=== PATIENT | male | born 1960 | race Caucasian/White ===

== ENCOUNTER 2019-03-20 15:00 | Outpatient (RCR) ==
--- NOTE | 2019-03-03 13:33 | RS.CXNS ---
Date of scheduled appointment: 03/03/19 Type: Cancel Reason for Cancel/NS: Due to work,re-scheduled for next week.
--- NOTE | 2019-03-06 16:05 | RS.OPPTDN ---
Subjective Date of Note: 03/06/19 Visit #: 5 Number of visits approved by Insurance: na Date of Evaluation: 02/21/19 Payer Source: Insurance Treatment Diagnosis: cervical pain, muscle tightness Current Subjective/complaints:: Patient reports occasional L shoulder aching , but none currently.He reports the cervical area feels stiff,but not painful. *Precautions: n/a Pain Assessment - Pain Description Pain Location: cervical / L shoulder Pain Description: Dull, Aching Current Pain Intensity: na - Heat/Cryotherapy Treatment: Hot Pack - Traction Treatment Method: Mechanical, Intermittent, Cervical Patient Position: Supine Amount of Force Applied: 20 # Hold Time: 30 secs. Rest Time: 5 secs. Duration of treatment: 20 mins. Traction Treatment Comment: Tolerates well. Interventions - Exercise/Activities/Manual Therapy Exercises/Activities: 20 mins. of postural pullbacks at 3 different angles, using black theraband.Reviewed HEP for cervical ROM and UT stretches. Total minutes of Exercise: 20 Manual Therapy: n/a Total minutes of Manual Therapy: 0 HOME EXERCISE PROGRAM: pt given written HEP including: cervical retraction, corner stretch, upper trap stretch, scapular retraction with green theraband - Charges Timed Code Treatment Minutes: 20 Total Treatment Time: 60 Procedures billed for this date of service:: hp,ex ,traction Assessment: Patient has less intensity ,less duration ,less frequency of pain throughout the day.He is attentive and motivated to improve .He has increased awareness of posture. Patient Education: Body/Joint mechanics, Home Exercise Program, Education of Plan of Care Patient demonstrates compliance with HEP?: Yes Short Term Goals Goal #1: pt independent with initial HEP Goal to be met by: 03/10/19 Progress towards Goal:: Progressing Goal #2: Decrease pain in cervical spine < 3/10 Goal to be met by: 03/10/19 Progress towards Goal:: Progressing Goal #3: Improve cervical ROM WFL's Goal to be met by: 03/10/19 Progress towards Goal:: Progressing Goal #4: Decrease upper trap tightness on L. 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 skilled PT to return patient to PLOF,with no cervical or L scapular pain ,tolerate all ADL's.
--- NOTE | 2019-03-09 08:19 | RS.OPPTDN ---
Subjective Date of Note: 03/08/19 Visit #: 6 Number of visits approved by Insurance: na Date of Evaluation: 02/21/19 Payer Source: Insurance Treatment Diagnosis: cervical pain, muscle tightness Current Subjective/complaints:: Patient reports tightness more than pain today, L shoulder also feels better. *Precautions: n/a Pain Assessment - Pain Description Pain Location: cervical /L scapula Pain Description: Tightness Current Pain Intensity: not rated - Heat/Cryotherapy Treatment: Hot Pack (20 mins. prior to traction) - Traction Treatment Method: Mechanical, Intermittent, Cervical Patient Position: Supine Amount of Force Applied: 22# Hold Time: 30 secs. Rest Time: 5 secs. Duration of treatment: 20 mins. Traction Treatment Comment: Tolerates well. Interventions - Exercise/Activities/Manual Therapy Exercises/Activities: HEP review while on hot pack,including the stretches and strengthening Total minutes of Exercise: 0 Manual Therapy: n/a Total minutes of Manual Therapy: 0 HOME EXERCISE PROGRAM: pt given written HEP including: cervical retraction, corner stretch, upper trap stretch, scapular retraction with green theraband - Charges Timed Code Treatment Minutes: 20 Total Treatment Time: 40 Procedures billed for this date of service:: hp,traction Assessment: Progressing well in all areas.He is compliant to HEP.He has improved postural awareness and also joint protection while at work. Patient Education: Education of diagnosis, Body/Joint mechanics, Home Exercise Program, Home Safety, Activity Modification, Education of Plan of Care Patient demonstrates compliance with HEP?: Yes Short Term Goals Goal #1: pt independent with initial HEP Goal to be met by: 03/10/19 Progress towards Goal:: Met Goal #2: Decrease pain in cervical spine < 3/10 Goal to be met by: 03/10/19 Progress towards Goal:: Partially Met (intensity varies) Goal #3: Improve cervical ROM WFL's Goal to be met by: 03/10/19 Progress towards Goal:: Progressing Goal #4: Decrease upper trap tightness on L. Goal to be met by: 03/10/19 Progress towards Goal:: Progressing [facility] Goals Goal #1: pt with no radiating pain into L scapula. Goal to be met by: 03/31/19 Progress towards goal: Partially Met (reports occasional "twinge" in L shoulder) Goal #2: pt able to perform normal daily work duties with no increased pain Goal to be met by: 03/31/19 Progress towards goal: Progressing Goal #3: decrease pain in cervical spine < 2/10 Goal to be met by: 03/31/19 Progress towards goal: Progressing Plan Dates of Stitchdown Thread Laster Goals: 03/31/19 Expiration date of current Insurance Approval:: 03/31/19 PLAN: Cont. skilled PT to return patient to PLOF.
--- NOTE | 2019-03-10 13:52 | RS.CXNS ---
Date of scheduled appointment: 03/10/19 Type: Cancel Reason for Cancel/NS: pt called to cancel appt due to unable to leave work. Rescheduled for next week.
--- NOTE | 2019-03-13 16:27 | RS.OPPTDN ---
Subjective Date of Note: 03/13/19 Visit #: 7 Number of visits approved by Insurance: na Date of Evaluation: 02/21/19 Payer Source: Insurance Treatment Diagnosis: cervical pain, muscle tightness Current Subjective/complaints:: Patient reports the neck pain is absent currently ,has some tightness present.He does still occasionally have the pain in the L scapula .He has noticed occasional tingling into the L 4th and 5th fingers,and it elevates when he side-bends his neck to the R. *Precautions: n/a Pain Assessment - Pain Description Pain Location: cervical / and L scapula Pain Description: Tightness, Dull, Aching Current Pain Intensity: not rated - Heat/Cryotherapy Treatment: Hot Pack (15 mins. prior to exercises and traction) - Traction Treatment Method: Mechanical, Intermittent, Cervical Patient Position: Supine Amount of Force Applied: 22# Hold Time: 30 secs. Rest Time: 5 secs. Duration of treatment: 20 mins. Traction Treatment Comment: Tolerates well. Interventions - Exercise/Activities/Manual Therapy Exercises/Activities: 25 mins. total,passive cervical stretches for rotation , lateral flexion,chin tucks ,upper traps stretches , occipital release,scapular trigger point release along medial border. Total minutes of Exercise: 25 Manual Therapy: n/a Total minutes of Manual Therapy: 0 HOME EXERCISE PROGRAM: pt given written HEP including: cervical retraction, corner stretch, upper trap stretch, scapular retraction with green theraband - Charges Timed Code Treatment Minutes: 55 Total Treatment Time: 55 Procedures billed for this date of service:: hp,ex2,traction Assessment: Patient progressing well.He has less intensity of pain in the cervical and L scapula.He is compliant to HERp.He still can benefit from PT to decrease the hypertonus in UT's.His medial border of the L scapula has several trigger points that are tender to palpate with moderate pressure. Patient Education: Body/Joint mechanics, Home Exercise Program, Education of Plan of Care Patient demonstrates compliance with HEP?: Yes Short Term Goals Goal #1: pt independent with initial HEP Goal to be met by: 03/10/19 Progress towards Goal:: Met Goal #2: Decrease pain in cervical spine < 3/10 Goal to be met by: 03/10/19 Progress towards Goal:: Partially Met (intensity varies) Goal #3: Improve cervical ROM WFL's Goal to be met by: 03/10/19 Progress towards Goal:: Progressing Goal #4: Decrease upper trap tightness on L. 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 Goal to be met by: 03/31/19 Progress towards goal: Partially Met (reports occasional "twinge" in L shoulder) Goal #2: pt able to perform normal daily work duties with no increased pain Goal to be met by: 03/31/19 Progress towards goal: Progressing Goal #3: decrease pain in cervical spine < 2/10 Goal to be met by: 03/31/19 Progress towards goal: Progressing Plan Dates of Pellet Preparation Operator Goals: 03/31/19 Expiration date of current Insurance Approval:: 03/31/19 PLAN: Cont. skilled PT to eliminate cervica/scapular pain.
--- NOTE | 2019-03-15 16:24 | RS.OPPTDN ---
Subjective Date of Note: 03/15/19 Visit #: 8 Number of visits approved by Insurance: na Date of Evaluation: 02/21/19 Payer Source: Insurance Treatment Diagnosis: cervical pain, muscle tightness Current Subjective/complaints:: Patient reports no cervical pain ,mostly tightness today.He does still have occasional pain along the medial border of the L scapula. *Precautions: n/a Pain Assessment - Pain Description Pain Location: Cervical and L scapula Pain Description: Tightness, Dull, Aching Current Pain Intensity: 0 - Heat/Cryotherapy Treatment: Hot Pack (20 mins prior to manual therapy) Interventions - Exercise/Activities/Manual Therapy Exercises/Activities: HEP review only. Total minutes of Exercise: 35 Manual Therapy: 35 mins. deep tissue mobs. to cerivcal and upper traps. Total minutes of Manual Therapy: 35 HOME EXERCISE PROGRAM: pt given written HEP including: cervical retraction, corner stretch, upper trap stretch, scapular retraction with green theraband - Charges Timed Code Treatment Minutes: 35 Total Treatment Time: 55 Procedures billed for this date of service:: hp,manual 2 Assessment: Patient reports decreased tightness ,demos the cervical rotation to L and R ,and is visibly better.The trigger points along the medial border of the L scapula do have release today. Patient Education: Body/Joint mechanics, Education of Plan of Care Patient demonstrates compliance with HEP?: Yes Short Term Goals Goal #1: pt independent with initial HEP Goal to be met by: 03/10/19 Progress towards Goal:: Met Goal #2: Decrease pain in cervical spine < 3/10 Goal to be met by: 03/10/19 Progress towards Goal:: Met (intensity varies) Goal #3: Improve cervical ROM WFL's Goal to be met by: 03/10/19 Progress towards Goal:: Partially Met (lateral flexion is limited) Goal #4: Decrease upper trap tightness on L. Goal to be met by: 03/10/19 Progress towards Goal:: Progressing [facility] Goals Goal #1: pt with no radiating pain into L scapula. 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 skilled PT ,initiate D/C plan for next week due to good progress.
--- NOTE | 2019-03-20 16:10 | RS.OPPTDN ---
Subjective Date of Note: 03/20/19 Visit #: 9 Number of visits approved by Insurance: na Date of Evaluation: 02/21/19 Payer Source: Insurance Treatment Diagnosis: cervical pain, muscle tightness Current Subjective/complaints:: Patient reports tightness only today.He feels the manual therapy at the last session was beneficial,and he has no scapular pain today.He is aware of D/C plan after next session due to good progress. *Precautions: n/a Pain Assessment - Pain Description Pain Location: cervical Pain Description: Tightness Current Pain Intensity: 0 - Heat/Cryotherapy Treatment: Hot Pack (15 mins. prior to manual therapy) Interventions - Exercise/Activities/Manual Therapy Exercises/Activities: HEP review only. Total minutes of Exercise: 0 Manual Therapy: 35 mins. deep tissue mobs. to cerivcal and upper traps. Total minutes of Manual Therapy: 35 HOME EXERCISE PROGRAM: pt given written HEP including: cervical retraction, corner stretch, upper trap stretch, scapular retraction with green theraband - Charges Timed Code Treatment Minutes: 35 Total Treatment Time: 50 Procedures billed for this date of service:: hp,ex 2 Assessment: Progressing well,has no pain today in the cervical or L scapula today.He is motivated to improve ,has increased awareness to do stretches as recommended.He continues to have trigger points along the medail border of the L scapula ,but not as tender to palpate with moderate pressure applied. Patient Education: Education of diagnosis, Body/Joint mechanics, Home Exercise Program, Home Safety, Activity Modification, Education of Plan of Care Patient demonstrates compliance with HEP?: Yes Short Term Goals Goal #1: pt independent with initial HEP Goal to be met by: 03/10/19 Progress towards Goal:: Met Goal #2: Decrease pain in cervical spine < 3/10 Goal to be met by: 03/10/19 Progress towards Goal:: Met (intensity varies) Goal #3: Improve cervical ROM WFL's Goal to be met by: 03/10/19 Progress towards Goal:: Met Goal #4: Decrease upper trap tightness on L. Goal to be met by: 03/10/19 Progress towards Goal:: Progressing [facility] Goals Goal #1: pt with no radiating pain into L scapula. Goal to be met by: 03/31/19 Progress towards goal: Met Goal #2: pt able to perform normal daily work duties with no increased pain Goal to be met by: 03/31/19 Progress towards goal: Partially Met Goal #3: decrease pain in cervical spine < 2/10 Goal to be met by: 03/31/19 Progress towards goal: Met Plan Dates of Chemical Weigher Goals: 03/31/19 Expiration date of current Insurance Approval:: 03/31/19 PLAN: Cont. skilled PT ,initiate D/C plan this week.
--- NOTE | 2019-03-22 15:39 | RS.QUICKDC ---
Discharge from PT Date of Discharge: 03/22/19 Number of Visits: 9 Reason for Discharge: Patient had follow-up appt. yesterday with good report.He calls today ,pleased with his progress,no pain present.D/C PT due to good progress.
== END 2019-04-01 23:59 ==
PROVIDERS: ATTEND Nurse Practitioner
DX: M54.2 Cervicalgia (principal)